=== PATIENT | female | born 1960 | race Two or more races ===

== ENCOUNTER 2024-01-21 18:57 | Emergency (ER) | payer BC ==
[~2024-01-21] VITALS: Ht 167.6 cm; Wt 59.0 kg
[2024-01-21] MEDS ORDERED: LEVOTHYROXINE25 MCG PO (19:14)
[2024-01-21] MEDS ORDERED: ADVIL DUAL ACT1 EACH PO (21:01)
== END 2024-01-21 21:11 | disposition home or self-care (01) ==
LOC: ER 18:58
DX: M77.11 Lateral epicondylitis, right elbow (principal)